=== PATIENT | female | born 1965 | race Caucasian/White ===

== ENCOUNTER 2019-04-16 13:21 | Inpatient (IN) ==
[2019-04-16 13:54] LABS: BASO# 0.02 X1000 (0.0-0.2); BASO% 0.1 % (0.0-0.8); EOS# 0.08 X1000 (0.0-0.7); EOS% 0.5 % (0.0-10.0); HEMATOCRIT 37.2 % (37.0-47.0); HEMOGLOBIN 12.1 g/dL (12.0-16.0); IMM GRAN# 0.04 X1000 (0.0-0.04); IMM GRAN% 0.3 % (0.0-0.5); LYMPH# 1.01 X1000 (1.2-3.4); LYMPH% 6.7 % (20.5-51.1); MCH 27.3 PG (27-31); MCHC 32.5 g/dL (33-37); MONO# 1.24 X1000 (0.11-0.59); MONO% 8.2 % (1.7-9.3); NEUT# 12.67 X1000 (1.4-6.5); NEUT% 84.2 % (42.2-75.2); PLT 226 X1000 (130-400); RBC 4.43 XMIL (4.2-5.4); RDW 13.1 % (11.5-14.5); WBC 15.06 X1000 (4.8-10.8)
[2019-04-16 14:23] LABS: ALBUMIN 4.1 g/dL (3.5-5.0); CALCIUM 9.3 mg/dL (8.8-10.2); POTASSIUM 4.5 mmol/L (3.5-5.1); TOTAL BILIRUBIN 0.4 mg/dL (0.20-1.00); TOTAL PROTEIN 7.5 g/dL (6.3-8.3)
[2019-04-16 14:31] LABS: URINE SOURCE CLEAN CATCH
[2019-04-16 14:36] LABS: BILIRUBIN URINE NEGATIVE (NEGATIVE); BLOOD URINE SMALL (NEGATIVE); COLOR YELLOW; GLUCOSE URINE NEGATIVE (NEGATIVE); KETONE URINE NEGATIVE (NEGATIVE); LEUKOCYTES URINE NEGATIVE (NEGATIVE); NITRITE URINE NEGATIVE (NEGATIVE); PROTEIN URINE 30 mg/dL (NEGATIVE); SP GRAVITY URINE 1.016; TURBIDITY URINE CLEAR (CLEAR); UROBILINOGEN URINE NORMAL (NORMAL)
[2019-04-16 14:38] LABS: UR EPITHELIAL CELLS <10 /HPF (<10); URINE BACTERIA NEGATIVE /HPF; URINE RBC <10 /HPF (<10); URINE WBC <10 /HPF (<10)
[2019-04-16] MEDS ORDERED: NS 1,000 ML IV ONE (14:57)
[2019-04-16] MEDS ORDERED: ZOFRAN IV ONE ×2 (14:57→18:47)
[2019-04-16 15:31] LABS: CK INDEX 1.6 (0.0-2.5); CK-MB 3.05 ng/mL (0.0-5.0)
--- NOTE | 2019-04-16 17:43 | Diag Imaging Result Doc PS360 ---
EXAM: CT ABD/PELVIS W/IV CONT ONLY INDICATION: abdo pain TECHNIQUE: This exam was performed using automated exposure control, adjustment of mA or kV according to patient size, and/or use of iterative reconstruction technique. COMPARISON: None. FINDINGS: There are a few calcified granulomata in the right lower lobe. There are multiple other tiny subcentimeter lung nodules at the bases that are noncalcified. For reference, one of the largest nodules is in the medial right middle lobe on image three of series 4 measuring up to 5.1 mm. Although these certainly could represent noncalcified granulomata, given the findings in the abdomen, metastatic disease cannot be excluded. CT surveillance is recommended. There are innumerable masses seen throughout the liver parenchyma that are highly suspicious for metastatic disease. The largest is a confluent mass at the inferior aspect of the right hepatic lobe measuring 10.4 x 5.7 cm axially. There is a cluster of low dense mass is near the sebastien hepatis that probably represent necrotic lymph nodes. The gallbladder, spleen, and adrenal glands are grossly unremarkable. No discrete pancreatic mass is identified. However, the cluster of enlarged lymph nodes near the sebastien hepatis abuts the pancreatic head. There is a nonobstructing intrarenal stone at the lower pole of the right kidney. There is a small right renal cyst. There is a duplicated right renal collecting system with two right ureters extending all way to the bladder. The kidneys are grossly unremarkable, otherwise. The urinary bladder appears normal. The reproductive tract is grossly unremarkable as imaged. There is trace free fluid in the pelvis that is nonspecific. No definite colonic wall thickening or stricture can be identified by CT. There is no evidence of bowel obstruction. There is a small hiatal hernia. The remainder of the GI tract is grossly unremarkable by CT. There are lumbar degenerative changes. There is no evidence of local bony metastatic disease. IMPRESSION: 1.Innumerable masses throughout the liver parenchyma that are highly suspicious for metastatic disease from an unknown primary. 2.Mesenteric mass is near the esbastien hepatis that probably represent enlarged necrotic lymph nodes. 3.Several tiny noncalcified nodules scattered throughout the lung bases that could represent noncalcified granulomata. However, given the findings in the abdomen, metastatic foci cannot completely be excluded. Continued CT surveillance is recommended. 4.Other incidental/nonacute findings detailed above. Electronically signed by Roberth Hilton 04/16/2019 5:41 PM
[2019-04-16] MEDS ORDERED: DILAUDID IV ONE (18:44)
--- NOTE | 2019-04-16 18:58 | PROVIDER DOCUMENTATION ---
This chart was entered by Babita Leon Scribe, acting as scribe for Ramsey Marino MD. HPI-Abdominal Pain/GI Problem - General Chief Complaint: B/P Problems Stated Complaint: BLOOD PRESSURE Time Seen by Provider: 04/16/19 14:48 Source: patient, family Allergies/Adverse Reactions: Patient Allergies Allergy/AdvReac Type Severity Reaction Status Date / Time No Known Allergies Allergy Verified 04/16/19 13:32 Home Medications: Home Medication List Medication Instructions Recorded Confirmed Last Taken Type Dextroamphetamine/Amphetamine 30 mg PO BID 04/16/19 04/16/19 04/15/19 History [Adderall 30 mg Tablet] Lisinopril 40 mg PO DAILY 04/16/19 04/16/19 04/15/19 History - History of Present Illness-ABD Nature of Presenting Problems: 53 yowf presents to the ed with c/o abd pain with n/v/d and dizziness 6 days. pt sts she feels she is dehydrated due to diarrhea and vomiting. pt has noted her BP has been low with diastolic in the 40's. pt sts did not take her HTN medication today and has vomited x1 when she tried to eat some yogurt. pt sts diarrhea has chnged to constipation today and stool is hard and small. pt c/o abd pain and dizziness on exam. pt is nontoxic in appearance Abdominal Pain Onset Location: reports: generalized abdomen Quality of Pain: reports: aching Severity in ED: reports: mild Onset/Duration: reports: 6 days ago Timing: reports: still present, improving, intermittent Activities at Onset: reports: light activity Exposure to sick contacts?: No Modifying Factors: improves with: nothing Associated Symptoms: reports: diarrhea, nausea, vomiting. denies: back/neck pain, chest pain, fever/chills, shortness of breath Last BM: this morning Dark Stools Present?: reports: none noticed Rectal Bleeding: reports: none # of Diarrhea Episodes: 0 (constipation today only ) Rectal Pain: reports: none # of Vomiting Episodes: 1 Emesis Description: reports: none Bruising or Bleeding Gums?: No Similar Symptoms Previously?: Yes Recently seen or treated by another doctor?: No Review of Systems - Adult - REVIEW OF SYSTEMS - ADULT Constitutional: denies: chills, fever Eyes: reports: no symptoms reported Ears, Nose, Mouth & Throat: reports: no symptoms reported Cardiovascular: denies: chest pain, palpitations Respiratory: denies: cough, shortness of breath, wheezing Gastrointestinal: reports: see HPI, abdominal pain, constipation, diarrhea, nausea, vomiting Genitourinary: reports: no symptoms reported Musculoskeletal: denies: back pain, neck pain Integumentary: reports: no symptoms reported Neurological: denies: dizziness/vertigo, headache/migraines Psychiatric: reports: no symptoms reported Endocrine: reports: no symptoms reported Hematologic/Lymphatic: reports: no symptoms reported Allergic/Immunologic: reports: no symptoms reported All Other Systems: Reviewed and Negative Past History - Adult - PAST MEDICAL HISTORY-ADULT Review of Records: reports: Old Records Reviewed, Nursing Assessment Review, Medications Reviewed, Social history reviewed & non-contributory. Major Childhood Illnesses: reports: denies history Cardiovascular: reports: HTN Respiratory: reports: denies history Gastrointestinal: reports: denies history Obstetrical/Gynecological: reports: denies history Genitourinary: reports: denies history Musculoskeletal: reports: denies history Hand Dominance: Right Handed Neurological: reports: denies history Psychiatric: reports: denies history Endocrine/Immune: reports: denies history Other Conditions: reports: denies history - PRIOR SURGERIES/PROCEDURES Surgical/Procedure History: reports: reviewed, not pertinent - IMMUNIZATION STATUS Childhood Immunizations: See Nurse Assessment Flu Vaccine: See Nurse Assessment - FAMILY HISTORY Family History: reviewed, not pertinent - SOCIAL HISTORY Smoking: denies Substance Use: denies Living Situation: family Physical Exam-General - PHYSICAL EXAM-ADULT Initial Vital Signs Reviewed: Yes - CONSTITUTIONAL General Appearance: appears well, alert, no apparent distress, obese - EYES Eyes: PERRL/EOMI, pink conjunctivae - HEAD, EARS, NOSE, MOUTH & THROAT HENMT: moist mucous membranes - NECK Neck: non-tender, full range of motion, supple, normal inspection - RESPIRATORY Respiratory: chest non-tender, lungs clear, normal breath sounds - CARDIOVASCULAR Cardiovascular: normal peripheral pulses, regular rate, rhythm - CHEST (BREASTS) Chest/Breast: deferred - GASTROINTESTINAL (ABDOMEN) Abdominal Exam: normal bowel sounds, soft, guarding, tenderness (diffuse). negative: distended, rigid, rebound - GENITOURINARY Female Genitalia/Pelvic Exam: deferred Rectal Exam: deferred Hemoccult Exam: deferred - LYMPHATIC Lymphatic: no adenopathy - MUSCULOSKELETAL Back Exam: no CVA tenderness, no vertebral tenderness Extremity: normal range of motion, non-tender, normal inspection - SKIN Integumentary: normal color, normal turgor, warm/dry - NEUROLOGIC Neurologic: grossly normal - PSYCHIATRIC Psych/Mental Status: normal mood/affect, normal thought content, normal thought process, oriented x 3 Progress - PLAN OF CARE/RESULTS Progress/Plan/Lab Results: Vital Signs - 8 hr 04/16/19 13:27 Temperature 99.5 F Pulse Rate 98 H Respiratory Rate 18 Blood Pressure 136/82 O2 Sat by Pulse Oximetry 100 Laboratory Results - last 24 hr 04/16/19 04/16/19 04/16/19 13:42 13:42 13:42 WBC 15.06 H RBC 4.43 Hgb 12.1 Hct 37.2 MCV 84.0 MCH 27.3 MCHC 32.5 L RDW Std Deviation 13.1 Plt Count 226 MPV 10.0 Immature Gran % (Auto) 0.3 Neut % (Auto) 84.2 H Lymph % (Auto) 6.7 L [place] % (Auto) 8.2 Eos % (Auto) 0.5 Baso % (Auto) 0.1 Immature Gran # (Auto) 0.04 Neut # (Auto) 12.67 H Lymph # (Auto) 1.01 L [place] # (Auto) 1.24 H Eos # (Auto) 0.08 Baso # (Auto) 0.02 Sodium 139 Potassium 4.5 Chloride 100 Carbon Dioxide 26 Anion Gap 14 BUN 31 H Creatinine 1.0 H Estimated GFR/1.73 m2 58 BUN/Creatinine Ratio 31 Glucose 105 H Calculated Osmolality 284 Calcium 9.3 Total Bilirubin 0.40 AST 88 H ALT 91 H Alkaline Phosphatase 234 H Troponin T High Sens 19 Total Protein 7.5 Albumin 4.1 Globulin 3.0 Albumin/Globulin Ratio 1.0 Lipase 35 Urine Source Urine Color Urine Turbidity Urine pH Ur Specific [place] Urine Protein Ur Glucose (Stick) Ur Ketones (Stick) Urine Blood Urine Nitrite Urine Bilirubin Urobilinogen Dipstick Urine Leukocytes Urine WBC (Auto) Urine RBC (Auto) U Epithel Cells (Auto) Urine Bacteria (Auto) 04/16/19 14:20 WBC RBC Hgb Hct MCV MCH MCHC RDW Std Deviation Plt Count MPV Immature Gran % (Auto) Neut % (Auto) Lymph % (Auto) [place] % (Auto) Eos % (Auto) Baso % (Auto) Immature Gran # (Auto) Neut # (Auto) Lymph # (Auto) [place] # (Auto) Eos # (Auto) Baso # (Auto) Sodium Potassium Chloride Carbon Dioxide Anion Gap BUN Creatinine Estimated GFR/1.73 m2 BUN/Creatinine Ratio Glucose Calculated Osmolality Calcium Total Bilirubin AST ALT Alkaline Phosphatase Troponin T High Sens Total Protein Albumin Globulin Albumin/Globulin Ratio Lipase Urine Source CLEAN CATCH Urine Color YELLOW Urine Turbidity CLEAR Urine pH 6.0 Ur Specific [place] 1.016 Urine Protein 30 A Ur Glucose (Stick) NEGATIVE Ur Ketones (Stick) NEGATIVE Urine Blood SMALL A Urine Nitrite NEGATIVE Urine Bilirubin NEGATIVE Urobilinogen Dipstick NORMAL Urine Leukocytes NEGATIVE Urine WBC (Auto) <10 Urine RBC (Auto) <10 U Epithel Cells (Auto) <10 Urine Bacteria (Auto) NEGATIVE Orders Category Date Time Status AMYLASE [CHEM] Stat Lab 04/16/19 13:42 Received CBC WITH ELECTRONIC DIFF [HEME] Stat Lab 04/16/19 13:42 Completed CK PROFILE [SP CHEM] Stat Lab 04/16/19 13:42 Received COMPREHENSIVE METABOLIC PANEL [CHEM] Stat Lab 04/16/19 13:42 Completed LIPASE [CHEM] Stat Lab 04/16/19 13:42 Completed TROPONIN T HIGH SENSITIVITY Stat Lab 04/16/19 13:42 Completed URINALYSIS W/POSS RFLX CULT [URINALYSIS] Stat Lab 04/16/19 14:20 Completed Result Diagrams: 04/16/19 13:42 04/16/19 13:42 - EKG 1 Time of EKG reading by physician:: 16:45 EKG Read and Signed by:: Ramsey Marino EKG Interpretation (*Must complete 3 of following elements*): Normal Rate: 85 Rhythm: nsr Rosine: normal QRS: normal CT Interval: normal ST Wave: normal - CT/MRI 1 CT Study: Abdomen, Pelvis Impression: See EMR Report - CONSULTS/PCP/HOSPITALIST Notification #1 *Consult/PCP/Hospitalist*: Time Discussed: 18:53 Consult Disposition: Will see in ED, Admit Departure - Departure Date of Disposition Decision: 04/16/19 Time of Disposition Decision: 18:53 DIAGNOSIS: Abdominal mass, Abdominal pain, Renal insufficiency, Lung nodules Disposition: ADMITTED INPATIENT 09 Certified Medical Emergency: Emergent Condition: Fair Referrals and Follow-Ups: Venus Boyle [Primary Care Provider] - - Critical Care Note This patient required my direct & personal management of CC.: No Attestation - Physician/ DILIP Attestation Patient care was provided by Advanced Practice Provider:: No The physician spent face to face time with patient:: Yes Advanced Practice Provider documentation review:: Supervising physician onsite and consulted in the evaluation and care of this patient. The physician did have a face to face encounter with the patient. This chart was documented by the indicated scribe, (Babita Leon Scribe) and accurately reflects the services I performed and decisions made by me, Ramsey Marino MD, as attested by the provider's signature.
[2019-04-16] MEDS ORDERED: ZOFRAN IV PRN (19:17)
[2019-04-16] MEDS ORDERED: M.V.I.-12 10 ML, FOLIC ACID 1 MG, MAGNESIUM SULFATE 1 GM, THIAMINE 100 MG in NS 1,000 ML IV ONE (19:17)
[2019-04-16] MEDS ORDERED: TYLENOL PO PRN (19:17)
[2019-04-16] MEDS ORDERED: NORCO-5 PO PRN (19:21)
[2019-04-16] MEDS ORDERED: NS 1,000 ML IV SCH ×2 (19:30)
[2019-04-16] MEDS ORDERED: LOVENOX SUBQ SCH (20:00)
--- NOTE | 2019-04-16 20:10 | Diag Imaging Result Doc PS360 ---
EXAM: CT HEAD W/O CONTRAST INDICATION: mets to liver TECHNIQUE: This exam was performed using automated exposure control, adjustment of mA or kV according to patient size, and/or use of iterative reconstruction technique. COMPARISON: None. FINDINGS: There is no definite acute infarct given the limited sensitivity of CT versus MRI. There is no discrete intracranial mass, mass effect, or intracranial hemorrhage. The surrounding soft tissues and bony structures are essentially unremarkable. IMPRESSION: No evidence of acute intracranial pathology. Electronically signed by Roberth Hilton 04/16/2019 8:08 PM
--- NOTE | 2019-04-16 20:22 | Diag Imaging Result Doc PS360 ---
EXAM: CT THORAX W/O CONTRAST INDICATION: mets to liver/? primary TECHNIQUE: This exam was performed using automated exposure control, adjustment of mA or kV according to patient size, and/or use of iterative reconstruction technique. COMPARISON: None. FINDINGS: There are several calcified granulomata scattered throughout both lungs and there are also numerous tiny subcentimeter nodules throughout both lungs. For reference, one of the largest nodules is pleural-based seen at the superior aspect of the right lower lobe measuring up to 6.6 mm. These nodules are nonspecific. Although they certainly could represent noncalcified granulomata as there is clearly evidence of prior granulomatous disease, metastatic lesions cannot completely be excluded given the findings on a recent CT of the abdomen and pelvis performed earlier today. There is no pleural fluid collection and no pneumothorax. There are multiple calcified mediastinal and hilar lymph nodes indicating prior granulomatous disease. No other significant lymphadenopathy is appreciated in the rupert or mediastinum given the limitations of an unenhanced CT. There is no cardiomegaly. There is no evidence of local bony metastatic disease. IMPRESSION: Numerous tiny noncalcified nodules seen throughout both lungs that are subcentimeter in size. Although they could represent noncalcified granulomata given that there is clearly evidence of prior granulomatous disease, metastatic foci cannot completely be excluded given the findings on a prior CT of the abdomen and pelvis performed earlier today. Continued surveillance is recommended. Electronically signed by Roberth Hilton 04/16/2019 8:19 PM
--- NOTE | 2019-04-16 22:31 | HISTORY AND PHYSICAL ---
CHIEF COMPLAINT: Abdominal pain, blood pressure. HISTORY OF PRESENT ILLNESS: The patient is a 53-year-old female who presented to the emergency department complaining of being nauseated and vomiting. Notes she has been dizzy off and on for the past week. She noted that she has been dehydrated, not drinking well. Does have some abdominal pain. She has also had weight loss. ALLERGIES: No known drug allergies. MEDICATIONS: Lisinopril 40, Adderall 30. REVIEW OF SYSTEMS: The patient has had a 20 to 30 pound weight loss, generalized abdominal pain, nausea, dizziness, fatigue. Denies any shortness of breath, chest pain, palpitations. Denies any fevers or chills. She has had intermittent constipation and diarrhea. PAST MEDICAL HISTORY: Hypertension. FAMILY HISTORY: Noncontributory. SOCIAL HISTORY: The patient has a 30+ pack-year history of smoking. Does not drink or use illicit substances. PHYSICAL EXAM: Temperature 99, pulse 98, respiratory 18, BP 136/80. GENERAL: Patient is pleasant. She is in no distress. HEENT: Normocephalic. NECK: Supple. CARDIOVASCULAR: Regular rate. CHEST: Clear, nonlabored. ABDOMEN: Soft, diffusely tender, more so in the right upper quadrant. EXTREMITIES: Moves all extremities. NEUROLOGIC: No changes. She is awake, alert, oriented. LABS: WBCs 15, glucose 105, creatinine 1. CT demonstrates innumerable masses in her liver. ASSESSMENT: 1. Likely metastatic cancer with multiple masses in her liver. 2. Hypertension. 3. Weight loss. 4. Leukocytosis. 5. Chronic tobacco abuse. PLAN: We are going to admit patient to the hospital, place her on IV fluids, follow her blood pressures. She has not had a mammogram in the past 6 years. Notes that she has not had a colonoscopy previously. Does have a 30+ pack-year history of smoking. We are going to check a CT of her chest and will evaluate her liver masses. cc: Eulogio Solano MD
[2019-04-17 06:43] LABS: HEMATOCRIT 33.5 % (37.0-47.0); HEMOGLOBIN 10.6 g/dL (12.0-16.0); MCH 27.2 PG (27-31); MCHC 31.6 g/dL (33-37); MCV 86.1 FL (81-99); MPV 9.8 FL (7.4-10.4); RBC 3.89 XMIL (4.2-5.4); RDW 13.3 % (11.5-14.5); WBC 11.75 X1000 (4.8-10.8)
[2019-04-17] MEDS ORDERED: TYLENOL PO PRN (07:24)
--- NOTE | 2019-04-17 07:42 | EKG Report ---
Test Performed on : 04/16/2019 4:45:14 PM Test Reason : ER Blood Pressure : / mmHG Vent. Rate : 085 BPM Atrial Rate : 085 BPM P-R Int : 130 ms QRS Dur : 086 ms QT Int : 356 ms P-R-T Axes : 067 068 069 degrees QTc Int : 423 ms Normal sinus rhythm. Normal ECG No previous ECGs available Unconfirmed Result
[2019-04-17] MEDS ORDERED: M.V.I.-12 10 ML, FOLIC ACID 1 MG, MAGNESIUM SULFATE 1 GM, THIAMINE 100 MG in NS 1,000 ML IV ONE ×10 (08:00)
[2019-04-17] MEDS: NORCO-5 PO PRN (09:38)
[2019-04-17] MEDS: MORPHINE IV PRN ×4 (12:11→22:06)
[2019-04-17] MEDS: NS 1,000 ML IV SCH ×3 (12:17→22:08)
[2019-04-17 12:45] LABS: INR 1.2; PROTIME 15.3 Seconds (11.0-16.0)
[2019-04-17 12:46] LABS: PTT 41.4 Seconds (22.3-41.8)
--- NOTE | 2019-04-17 14:01 | HEMO/ONC CONSULTATION ---
DATE: 04/17/2019 REASON FOR CONSULTATION: Possible metastasis to the liver. HISTORY OF PRESENT ILLNESS: Ms. Gonzales is a 53-year-old female who presented to the emergency department yesterday with complaint of nausea, vomiting, and diarrhea with dizziness for the last 6 days. She also has abdominal pain and feels as though she is dehydrated. The ER performed an abdominal and pelvis CT which revealed innumerable masses throughout the liver parenchyma that were highly suspicious for metastatic disease. The patient also has a mesenteric mass near the sebastien hepatico and several tiny noncalcified nodules scattered throughout the lung bases. The patient was admitted for management and further evaluation. PAST MEDICAL HISTORY: Hypertension. PAST SURGICAL HISTORY: None. SOCIAL HISTORY: The patient has a 30 pack year history of smoking. She denies alcohol or illicit substances. ALLERGIES: No known drug allergies. HOME MEDICATIONS: Lisinopril and Adderall. REVIEW OF SYSTEMS: The patient complains of generalized abdominal pain. This morning, she denied nausea or diarrhea. She denies shortness of breath or chest pain, fevers or chills. According to the ER chart, she has had a 20 to 30 pound weight loss recently. All other review of systems are negative. PHYSICAL EXAMINATION: Vital Signs: Temperature 98 degrees, pulse rate 84, respiratory rate 19, blood pressure 137/82, O2 saturation 100% on room air. She is in 8/10 generalized abdominal pain. General: Obese female with a BMI of 30.7. She appears in no acute distress. HEENT: Sclerae anicteric. PERRLA. Oral mucosa slightly dry. Cardiovascular: Normal S1, S2. Regular rate and rhythm. Respiratory: Lung sounds are clear to auscultation. Normal respiratory effort. Abdomen: Protuberant, tender to the right upper quadrant, soft. Extremities: No lower extremity edema noted. Neurological: Alert and oriented x3. No focal motor deficits noted. LABORATORY DATA: WBCs 11.75, hemoglobin 10.6, hematocrit 33.5, platelet count 209,000. Creatinine 1.08, AST 88, ALT 91, alkaline phosphatase 234. CEA 29.4. RADIOLOGY: Chest, abdomen and pelvis CT: Innumerable masses throughout the liver parenchyma, mesenteric mass near the sebastien hepaticus, several tiny noncalcified nodules scattered throughout the lung bases. Chest CT: Numerous tiny noncalcified nodules seen throughout both lungs that are subcentimeter in size. Head CT: No acute evidence of intracranial pathology. ASSESSMENT AND PLAN: 1. Multiple lung nodules, mesenteric mass and liver masses. The patient has an elevated CEA. We have requested a CT-guided liver biopsy to be done today. We need pathology to determine for further assessment. 2. Nausea, vomiting, diarrhea. Continue to rehydrate the patient and provide her with nausea medicines as necessary. 3. Tobacco abuse, aware. Encouraged the patient to quit smoking. 4. Gastroenterology evaluation. The patient states she has never had a colonoscopy. That will need to be done soon. Dictated by OSKAR Posadas for Billy Ruiz MD cc: Billy Ruiz MD MTDD
--- NOTE | 2019-04-17 14:56 | Diag Imaging Result Doc PS360 ---
EXAM: CT GUIDED BX LIVER INDICATION: liver lesions TECHNIQUE: COMPARISON: 04/16/2019 FINDINGS: Risks, benefits, and alternatives were discussed with the patient and informed consent was obtained. The patient was placed in a supine position and was prepped and draped in sterile fashion. Local anesthesia was achieved with 1% lidocaine solution. With CT guidance, an 18-gauge coaxial biopsy needle system was used to obtain five 1.2 cm core biopsies from the dominant mass at the inferior aspect of the right hepatic lobe using an anterior approach. There were no known complications. IMPRESSION: Technically successful CT-guided liver biopsy. Electronically signed by Roberth Hilton 04/17/2019 2:54 PM
[2019-04-17] MEDS: MIRALAX PO SCH ×3 (15:03→22:46)
--- NOTE | 2019-04-17 18:16 | PROGRESS NOTE ---
DATE: 04/17/2019 SUBJECTIVE: I have seen and examined Ms. Gonzales today. Ms. Gonzales refers to be doing well. At the bedside was the boyfriend and the daughter. I had early on gone to see her but she had gone to do a liver biopsy on the CT scan and then I went back again. OBJECTIVE: Vital signs: Blood pressure is 138/76, pulse of 81, respirations 19, temperature 98.9 degrees. General: Ms. Gonzales is a 53-year-old female. She is in bed. No distress mucosa is pink and moist. Anicteric. Acyanotic. Neck: Supple. Chest: Clear to auscultation. No crepitations. No rhonchi. Cardiovascular: Regular rate and rhythm. Gastrointestinal: Abdomen is soft, nontender. There is an old infraumbilical surgical scar from tubal ligation. There is a sterile dressing over the CT-guided biopsy spot on the right upper quadrant. Extremities: No pedal edema. Central Nervous System: Patient is awake, alert, and oriented. LABORATORY DATA: WBC is 11.75, which is getting better. Hemoglobin is 10.6. Chemistry is also reviewed. Creatinine is 1.0 from yesterday. AST and ALT are minimally elevated. CEA is 29.4, which is elevated. ASSESSMENT: 1. Innumerable masses throughout the liver parenchyma that are highly suspicious for metastatic disease from unknown primary. Patient underwent a CT-guided biopsy today. Hopefully, tomorrow we are going to have some preliminary results. 2. Hypertension. 3. Chronic tobacco use and abuse. Patient has been counseled. 4. Weight loss. The patient refers to have lost about 20 pounds in the last month. 5. Transaminitis presumably from the liver metastasis. 6. Renal failure presumably acute with elevated BUN. We are going to continue with gentle hydration overnight and repeat the numbers. 7. Elevated CEA which would be concerning for a colon disease. Fortunately, the CT scan did not show any mass in the colon. There is a consult for GI to evaluate Ms. Gonzales for possible bidirectional endoscopies as part of the workup for this liver disease. cc: Amos Cordova MD
[2019-04-17] MEDS: AMPHETAMINE PO SCH (19:04)
[2019-04-17] MEDS: DEXTROAMPHETAMINE PO SCH (19:04)
[2019-04-17] MEDS: LOVENOX SUBQ SCH (20:11)
[2019-04-18] MEDS: MORPHINE IV PRN ×5 (02:02→21:44)
[2019-04-18] MEDS: MIRALAX PO SCH ×6 (07:03→22:22)
[2019-04-18] MEDS: AMPHETAMINE PO SCH ×2 (07:34→13:12)
[2019-04-18] MEDS: NORCO-5 PO PRN ×3 (07:34→22:55)
[2019-04-18] MEDS: DEXTROAMPHETAMINE PO SCH ×2 (07:34→13:12)
[2019-04-18 07:58] LABS: AGAP 10; ALB/GLOB RATIO 0.8; ALBUMIN 2.9 g/dL (3.5-5.0); ALKALINE PHOSPHATASE 205 U/L (32-104); BUN 13 mg/dL (8-22); CALCIUM 8.5 mg/dL (8.8-10.2); CHLORIDE 103 mmol/L (98-107); COSMO 278; CREATININE 0.7 mg/dL (0.5-0.9); ESTIMATED GFR > 60; GLUCOSE 96 mg/dL (70-104); GOT 77 U/L (10-30); GPT 89 U/L (10-36); POTASSIUM 4.4 mmol/L (3.5-5.1); SODIUM 139 mmol/L (136-145); TCO2 26 mmol/L (25-35); TOTAL BILIRUBIN 0.43 mg/dL (0.20-1.00); TOTAL PROTEIN 6.4 g/dL (6.3-8.3)
[2019-04-18] MEDS: NS 1,000 ML IV SCH ×2 (09:15→10:02)
--- NOTE | 2019-04-18 10:10 | PROGRESS NOTE ---
DATE: 04/18/2019 SUBJECTIVE: The patient's condition has not changed much since the previous time that my preceptor and I saw her yesterday afternoon. She reports no changes herself. Her only chief complaint at this point is continued constipation along with abdominal fullness and tenderness. She reports that the current regimen of MiraLAX that we have been giving her every 4 hours has not helped her with this at all. Her other main concern at this point is the results of the CT-guided biopsy of the multiple liver masses that were confirmed with CT. At this point, we still await the results of this biopsy and will follow up with Hematology/Oncology and Pathology as soon as we receive the results of the biopsy. OBJECTIVE: Vital signs: Most recent vital signs include a temperature of 98.5 degrees Fahrenheit, a pulse rate of 77 beats per minute, a respiratory rate of 19 respirations per minute, and a blood pressure of 146/86, along with an O2 saturation of 99. PHYSICAL EXAMINATION: Heart: Clear to murmurs, rubs, and gallops. Pulmonary: Lung is clear to auscultation in all lung esquivel with no rales or rhonchi appreciated. GI: The abdomen is mildly tender in the top left, top right, and bottom right quadrants of the abdomen along with increased tenderness in the bottom left hand corner of the abdomen. The abdomen is mildly distended. The abdomen exhibits bowel sounds that are diminished but present in all 4 quadrants. PERTINENT LABORATORY STUDIES: The most recent white blood cell count was 11.75, RBC 3.89, hemoglobin 10.6, hematocrit 33.5. PT 15.3, INR 1.2, PTT 41.4. Her calcium is low at the level of 8.5, all other electrolytes are within normal limits including a BUN of 13 with a creatinine of 0.7. PERTINENT IMAGING STUDIES: Previously, a CT of the abdomen and pelvis revealed multiple nodular masses found within the liver with masses that have metastasized to both the lungs and supposedly the breasts. A CT-guided biopsy of the mass in the liver was performed yesterday and we await the results of this biopsy today and will follow up with Hematology/Oncology and Pathology when we receive the results of this biopsy. ASSESSMENT AND PLAN: 1. Masses throughout the liver parenchyma. These masses are highly concerning for metastasis of an unknown neoplasia. This is evidenced by an elevated carcinogenic embryonic antigen. We will follow up closely with Hematology/Oncology depending on the results of the biopsy that was taken yesterday and follow their recommendations for treatment depending on the results of the biopsy. Furthermore, it is previously documented that she reported B symptoms as well endorsing a weight loss of over 20 pounds without trying to lose weight. This is further concerning for neoplastic etiology of the masses within her liver. 2. Chronic constipation. Thankfully, the computed tomography scan that discovered the masses showed no masses within the colon so at this point it is most likely not that her constipation is due to any tumors such as Harrison syndrome or toxic megacolon, however, seeing that she does report continued constipation, we will increase her dose of MiraLAX to every 2 hours instead of every 4 hours for now. regards to her systolic blood pressure. Will continue to monitor Thank you very much for allowing me to see your patient. Dictated by Miroslava Prasad, Medical Student for Amos Cordova MD This chart was documented by, Miroslava Prasad Medical Student and accurately reflects the services performed, treatment plan and medical decisions as attested by the providers signature Amos Cordova MD. cc: Amos Cordova MD Addendum: Pathology report reviewed. Adenocarcinoma with necrosis. Awaiting IHC. Patient and family have been notified. Awaiting on GI evaluation on Sunday. [facility]
--- NOTE | 2019-04-18 11:02 | GASTROENTEROLOGY CONSULTATION ---
DATE: 04/18/2019 REASON FOR CONSULT: Liver mass. HISTORY OF PRESENT ILLNESS: Ms. Gonzales is a 53-year-old female who presented to the [facility] complaining of nausea and vomiting. She came yesterday to [facility]. She mentioned that it all started from when she had some abdominal pain and diarrhea. On Sunday when she woke up she felt like she was confused and did not know what was going on, but Sunday she went back to work, and when she went to work she felt like her blood pressure had dropped. She was feeling dizzy, dehydrated. She is still complaining of abdominal pain in the upper quadrant. She said on Sunday her blood pressure was normal, but she still had abdominal cramps with nausea and vomiting. She has been having constipation, her last BM was on Sunday with few hard stools. The patient has the history of hypertension, narcolepsy, depression, sleep apnea, and has been taking Adderall for the last 4 years for her weight loss. The patient has lost approximately 30 to 35 pounds so far. An abdomen and pelvis CT was done on 04/16/2019, and it showed that she had innumerable masses throughout the liver parenchyma highly suspicious of metastatic disease, mesenteric mass near the sebastien hepatis that probably represents enlarged necrotic lymph nodes, and several tiny noncalcified nodules scattered throughout the lung bases, which could represent noncalcified granulomata. Her chest CT has shown that she has numerous tiny noncalcified nodules seen throughout about the lungs that are subcentimeter in size. A liver biopsy was done on 04/17/2019, preliminary path report shows metastatic adenocarcinoma with extensive necrosis, final diagnosis is pending, PAST MEDICAL HISTORY: Narcolepsy, depression, sleep apnea, hypertension, and tobacco abuse. PAST SURGICAL HISTORY: Tonsillectomy and tubal ligation. FAMILY HISTORY: Significant for heart disease. ALLERGIES: Allergic to pet dander. SOCIAL HISTORY: Smokes 1 pack of cigarettes daily. She has denied drinking any alcohol or illicit substance abuse. HOME MEDICATIONS: Adderall 30 mg twice a day, lisinopril 40 mg twice a day. REVIEW OF SYSTEMS: As per HPI. Otherwise, 12-point review of systems is negative. PHYSICAL EXAMINATION: Vital Signs: Temperature 98.5, pulse 77, respirations 19, blood pressure 146/86, oxygen saturation 99% on room air. Patient's weight is 208 pounds. BMI is 30.7 kg/m2. General: She is alert, oriented x3. Answering questions appropriately and in no acute distress. HEENT: Pale conjunctivae, no icterus. PERRL. Neck: Supple. Lungs: Clear to auscultation. Cardiovascular: Regular rate and rhythm. Abdomen: Soft. mildly distended, Tender in the right quadrants. Active bowel sounds heard in all 4 quadrants. Old surgical scar noted in the mid abdominal area. She also has a dressing on the right upper quadrant where the biopsy was taken. Extremities: No clubbing, no cyanosis, no edema. Pedal pulses 2+ present bilaterally. Neurologic: Alert and oriented x3. Nonfocal. Cranial nerves 2 through 12 grossly intact. LABS: WBCs 11.75, RBC 3.89, hemoglobin 10.6, hematocrit is 33.5, platelet count is 209,000. The sodium is 139, potassium 4.4, chloride 103, carbon dioxide 20, anion gap 10, BUN 13, creatinine is 0.7, glucose 96, calcium 8.5, total bilirubin 0.43, AST 77, ALT 89, alkaline phosphatase 205, albumin 2.9. Urinalysis showed protein of 30, small amount of blood. IMAGING: Head CT showed no evidence of acute intracranial pathology. Chest CT had showed numerous tiny noncalcified nodules seen throughout both lungs that are subcentimeter in size. Abdomen and pelvis CT has shown innumerable masses throughout the liver parenchyma which is highly suspicious for metastatic disease. Mesenteric mass is near the sebastien hepatis that probably represents enlarged necrotic lymph nodes. Several tiny noncalcified nodules scattered throughout the lung bases that could represent noncalcified granulomata. IMPRESSION AND PLAN: 1. Liver mass. 2. Abdominal pain. 3. Nausea and vomiting. 4. Hypertension. 5. Constipation PLAN: Ms. Gonzales is a 53-year-old female with a history of hypertension. GI has been consulted for her liver mass that is seen on her CT scan. We plan to do a colonoscopy for further evaluation and treatment on Sunday. The patient is currently receiving IV fluids normal saline at 75 mL/hour. She is on a bowel regimen, MiraLAX 17 grams QID. Patient is constipated since Sunday, we will give her one dose of mineral enema and continue to monitor. The patient is receiving antiemetic Zofran for nausea and vomiting. We will continue to monitor the patient and follow the plan of care per PCP. We are awaiting the results of the liver biopsy. This plan was discussed with Dr. Mendez. Thank you for your consult. Please call us for any further questions or concerns. Dictated by OSKAR Sellers for Julio Mendez MD [facility]TDD
[2019-04-18] MEDS ORDERED: FLEET MINERAL OIL ENEMA PR ONE ×2 (11:40→21:00)
--- NOTE | 2019-04-18 13:01 | HEMO/ONC PROGRESS NOTE ---
DATE: 04/18/2019 SUBJECTIVE: The patient is sitting up in bed. She states she definitely feels better than she has over the past several days. Her nausea and vomiting are relieved. However, she has still not had a bowel movement in approximately a week she says, despite use with MiraLAX. She continues to have pain to the right upper quadrant. Her abdomen is not tender anywhere else. She denies any significant events overnight. OBJECTIVE: Vital Signs: Temperature 98.5 degrees, pulse rate 88, respiratory rate 19, blood pressure 132/84, O2 saturation 100% on room air. She is in 7 out of 10 abdominal pain. General: Obese female in no acute distress. Cardiovascular: Normal S1, S2. Heart rate and rhythm regular. Respiratory: Lung sounds are clear to auscultation. Normal respiratory effort. Gastrointestinal: Soft, nondistended, tender to the upper right quadrant. Positive bowel sounds. Extremities: No lower extremity edema noted. Neurological: Alert and oriented x3. No focal motor deficits. LABORATORY DATA: No CBC drawn today. Sodium 139, potassium 4.4, calcium 8.5, AST 77, ALT 89, alkaline phosphatase 205. CEA 29.4. Pathology: The patient had a CT-guided liver biopsy performed which shows metastatic adenocarcinoma with extensive necrosis. Final diagnosis pending immunohistochemical stain. ASSESSMENT AND PLAN: 1. Multiple lung nodules, mesenteric mass and liver masses. The patient has an elevated CEA of 29.4. Her liver biopsy has shown metastatic adenocarcinoma. The patient will stay in the hospital over the weekend. She will have a colonoscopy on Sunday. 2. Nausea, vomiting, diarrhea. Continue to rehydrate the patient and provider her with appropriate nausea medications as needed. 3. Constipation. The patient states she has not had a good bowel movement in a week. She was placed on a MiraLAX protocol yesterday. She states she still has not had a bowel movement yet. We will continue MiraLAX. I am sure she will have a bowel prep soon to prepare for colonoscopy. 4. Tobacco abuse, aware. Encouraged the patient to quit smoking. 5. Deep venous thrombosis prophylaxis. The patient needs to have on pneumatic devices or sequential compression devices. She is also on Lovenox at this time. Please continue to encourage the patient to get out of bed, move about and sit in a chair some. This will also help with her bowels. Dictated by OSKAR Posadas for Billy Ruiz MD For liver biopsy today. Pathology prelim suggests adenocarcinoma. Immunostains pending. Patient should have scopes done sunday. Family had several questions which were addressed. Constipation persists despite miralax q4h. Discussed with GI [facility] for their further management. Billy Ruiz MD cc: Billy Ruiz MD [facility]
[2019-04-18] MEDS ORDERED: ATIVAN PO ONE (17:12)
[2019-04-18] MEDS: LEXAPRO PO SCH (20:54)
[2019-04-18] MEDS: LOVENOX SUBQ SCH (20:54)
[2019-04-19] MEDS: MIRALAX PO SCH ×6 (02:07→22:27)
[2019-04-19] MEDS: MORPHINE IV PRN ×4 (03:07→15:13)
[2019-04-19] MEDS: ZOFRAN IV PRN (03:18)
[2019-04-19] MEDS: AMPHETAMINE PO SCH ×2 (06:08→11:37)
[2019-04-19] MEDS: DEXTROAMPHETAMINE PO SCH ×2 (06:08→11:37)
[2019-04-19] MEDS: NORCO-5 PO PRN ×2 (06:08→13:16)
--- NOTE | 2019-04-19 12:42 | GASTROENTEROLOGY PROGRESS NOTE ---
DATE: 04/19/2019 SUBJECTIVE: Ms. Gonzales is a 53-year-old female. She was sitting in the chair. The patient has denied any nausea, vomiting. She is on a regular diet and was able to tolerate her diet well. She did have a few bowel movements early this morning and late yesterday night. OBJECTIVE: Vital Signs: Temperature 98.2 degrees, pulse 80, respirations 18, blood pressure 128/79, oxygen saturation 99%. The patient's weight is 208 pounds. BMI is 30.7 kg/m2. General: She is alert, oriented x3, and in no acute distress. HEENT: Pale conjunctivae. Mild icterus. PERRL. Neck: Supple. Lungs: Clear to auscultation. Cardiovascular: Regular rate and rhythm. Abdomen: Obese, soft, tender in the right upper quadrant. Has a bandage on the right quadrant where the biopsy was taken. Active bowel sounds heard in all 4 quadrants. Extremities: No clubbing, no cyanosis, no edema. Pedal pulses 2+ present bilaterally. Neurological: Alert and oriented x3. LABORATORY: The patient's hematology is from 04/16. WBC 11.75, RBC 3.89, hemoglobin 10.6, hematocrit 33.5, platelet count is 209,000. Sodium 139, potassium 4.4, chloride 103, carbon dioxide 26, anion gap is 10, BUN is 13, creatinine is 0.7, glucose is 96, calcium is 8.5, total bilirubin 0.43, AST 77, ALT 89, alkaline phosphatase is 205, albumin is 2.9. The patient's liver biopsy preliminary report shows that she has got metastatic adenocarcinoma with extensive necrosis. Final diagnosis is yet pending. IMPRESSION AND PLAN: Liver mass Abdominal pain Nausea and vomiting Hypertension Constipation - resolved Tobacco abuse PLAN: Ms. Gonzales is a 53-year-old female with a history of hypertension. GI is following her for a liver mass which was seen on the CT scan. We plan to do a colonoscopy on Sunday for further evaluation and treatment. The patient's constipation is currently resolved. She is on a bowel regimen Miralax 17 g p.o. every 4 hours. The patient is receiving antiemetic Zofran for her nausea and vomiting. Awaiting the final biopsy results. We will continue to monitor the patient and follow the plan of care per PCP. This plan was discussed with Dr. Mckeon. Please call us for any further questions or concerns. Dictated by OSKAR Sellers for Joslyn Mckeon MD cc: Joslyn Mckeon MD [facility]
--- NOTE | 2019-04-19 14:27 | PROGRESS NOTE ---
DATE: 04/19/2019 INTERVAL HISTORY: The patient is doing well. Still having some occasional right lower quadrant pain, but otherwise no complaints. Afebrile. REVIEW OF SYSTEMS: Twelve point review of systems negative except as per interval history. VITALS: T-max 98.3 degrees, pulse 79, respirations 18, blood pressure 128/79. O2 saturation 99% on room air. PHYSICAL EXAMINATION: General: No acute distress. Vitals: As above. HEENT: Normocephalic, atraumatic. Moist mucous membranes. No cervical adenopathy. Cardiovascular: Regular rate and rhythm. No murmurs noted. Pulmonary: Clear to auscultation bilaterally. No wheezing, rales, or rhonchi. Abdomen: Minimal diffuse tenderness without rebound or guarding. Bowel sounds positive. No distention. Extremities: Peripheral pulses intact. No clubbing, cyanosis. Neurologic: Cranial nerves grossly intact. No focal deficits identified. Psychiatric: Normal mood and affect. Awake, alert, oriented x3. ASSESSMENT AND PLAN: 1. Likely late stage colon cancer with metastasis to liver and lung. Patient with numerous masses in the liver and numerous tiny masses in the lungs. CEA elevated. Pathology from liver biopsy showing adenocarcinoma with extensive necrosis. Given adenocarcinoma and past elevated CEA and distribution of metastases this is almost certainly colon cancer. The patient still with issues with constipation despite fairly aggressive bowel regimen, although she does not appear to be obstructed on most recent imaging. No abdominal distention really. However, there is some concern for possible developing obstruction. The patient is planned for colonoscopy on Sunday and will receive GoLYTELY prep tomorrow, which may help with the constipation and prevent worsening of possible obstruction. Suspect she will need port placement after the colonoscopy. We will discharge home after that, assuming she is eating and drinking reasonably well. 2. Acute on chronic constipation. Patient does have some chronic issues with constipation, which may be a large part of it given her likely diagnosis of colon cancer. There is some concern for developing obstruction as above. Continue bowel regimen and monitor. No sharita obstruction on imaging thus far. 3. Tobacco abuse. Patient has been advised on cessation.
--- NOTE | 2019-04-19 18:33 | HEMO/ONC PROGRESS NOTE ---
DATE: 04/19/2019 SUBJECTIVE: The patient is sitting up in bed. She states that she is feeling better today. VITAL SIGNS: Temperature 98.3, pulse rate 79, respiratory rate 18, blood pressure 128/79, O2 saturation 99% on room air. She is in 10/10 abdominal pain. PHYSICAL EXAMINATION: General: The patient is sitting in bed. She appears to be in no acute distress. Cardiovascular: Normal S1, S2. Regular rate and rhythm. Rhythm. Respiratory: Lung sounds are clear to auscultation. Normal respiratory effort. Abdomen: Diffuse tenderness with palpation. No guarding. Bowel sounds are positive. No distention. Abdomen soft. Extremities: No lower extremity edema noted. Neurological: Alert and oriented x3. LABORATORY DATA: No labs were drawn today. ASSESSMENT AND PLAN: 1. Multiple lung nodules, mesenteric mass and liver masses. The patient's CEA is elevated. Her preliminary liver biopsy shows metastatic adenocarcinoma. We are continuing to await final pathology after stains. The patient has had a bowel movement today. She is feeling better in that regard. She will have a colonoscopy on Sunday. We will continue to follow. 2. Nausea, vomiting, and diarrhea. This has resolved. 3. Acute on chronic constipation. The patient states that she does have chronic issues with constipation. This may be in part due to malignancy. The patient has started a bowel regimen in preparation for colonoscopy on Sunday. She is currently having bowel movements. 4. Tobacco abuse, aware. Encouraged patient to quit smoking. 5. Deep venous thrombosis prophylaxis. The patient is wearing pneumatic devices or sequential compression devices. Continue her on Lovenox until necessary to stop or colonoscopy. Continue to encourage patient to get out of bed at least 3 times a day. Dictated by OSKAR Posadas for Billy Ruiz MD cc: Billy Ruiz MD
[2019-04-19] MEDS: PERCOCET-10 PO PRN (18:55)
[2019-04-19] MEDS: LOVENOX SUBQ SCH (19:49)
[2019-04-19] MEDS: LEXAPRO PO SCH ×2 (19:53→20:16)
[2019-04-19] MEDS: ATIVAN PO SCH ×2 (19:54→20:16)
[2019-04-20] MEDS: PERCOCET-10 PO PRN ×5 (01:34→22:05)
[2019-04-20] MEDS: MIRALAX PO SCH ×5 (03:09→20:43)
[2019-04-20] MEDS: AMPHETAMINE PO SCH ×2 (06:13→12:05)
[2019-04-20] MEDS: DEXTROAMPHETAMINE PO SCH ×2 (06:13→12:05)
[2019-04-20] MEDS ORDERED: GOLYTELY PO ONE (14:00)
--- NOTE | 2019-04-20 14:54 | GASTROENTEROLOGY PROGRESS NOTE ---
DATE: 04/20/2019 SUBJECTIVE: Ms. Gonzales is a 53-year-old female resting in bed. Family is at the bedside. The patient has denied any nausea or vomiting today. She did have 1 bowel movement today. OBJECTIVE: V/S - temp 98.3, pulse 80, R-16, BP-125/66, O2 100% RA, Weight - 208 lbs, BMI 30.7 kg/m2. General: AO x 3, in no acute distress, HEENT: Pale conjunctivae, no icterus, PERRL, Neck supple, Lungs: clear to auscultation. Cardiovascular: RRR. Abdomen: slight abdominal tenderness in the right quadrant. Active bowel sounds heard in all 4 quadrants. Extremities no clubbing, no cyanosis, no edema. Pedal pulses 2+ present bilaterally. Neurologic she is alert, oriented x3. LABS: WBCs 11.75, RBC 3.89, hemoglobin 10.6, hematocrit 33.5, platelet count is 209,000. The patient's chemistries are from 04/17: Sodium 139, potassium 4.4, chloride 103, carbon dioxide 26, anion gap 10, BUN 13, creatinine is 0.7, glucose 96, calcium 8.5, total bilirubin 0.43, AST 77, ALT 89, alkaline phosphatase is 205, albumin is 2.9. IMPRESSION AND PLAN: Liver masses and lung nodules Abdominal pain Nausea and vomiting Hypertension Constipation Tobacco abuse PLAN: Ms. Gonzales is a 53-year-old female with a history of hypertension. GI is following a liver masses which were seen on the CT scan. We plan to do EGD and a colonoscopy for further evaluation and treatment. The patient's constipation is getting resolved. She is on a bowel regimen, MiraLAX 17 g every 4 hours. We will reduce it to every 2 hours. The patient is also receiving Zofran for nausea and vomiting. Further plan of care will be based on the EGD and colonoscopy findings. We have discussed the risks, benefits, and alternatives of the procedure to the patient. This plan was discussed with Dr. Mckeon. Please call us for any further questions or concerns. Dictated by OSKAR Sellers for Joslyn Mckeon MD cc: Joslyn Mckeon MD [facility]
--- NOTE | 2019-04-20 15:34 | PROGRESS NOTE ---
DATE: 04/20/2019 INTERVAL HISTORY: The patient's right lower abdominal pain is better controlled with Percocet. The patient is starting bowel prep today for a colonoscopy tomorrow. No acute events. No other complaints. REVIEW OF SYSTEMS: Twelve point review of systems is negative except as per interval history. VITALS: T-max 99.7 degrees, pulse 80, respirations 16, blood pressure 125/66, O2 saturation 100% on room air. PHYSICAL EXAMINATION: General: No acute distress. Vitals: As above. HEENT: Normocephalic, atraumatic. Moist mucous membranes. No JVD. No cervical adenopathy. Cardiovascular: Regular rate and rhythm. No murmurs noted. Pulmonary: Clear to auscultation bilaterally. No wheezing, rales, or rhonchi. Abdomen: Soft. Minimal diffuse tenderness without rebound or guarding. Bowel sounds pretty good. Extremities: Peripheral pulses intact. No clubbing, cyanosis, or edema. Neurologic: Cranial nerves grossly intact. No focal deficits identified. Psychiatric: Normal mood and affect. The patient awake, alert, oriented x3. ASSESSMENT AND PLAN: 1. Likely late stage colon cancer with metastasis to liver and lung. Patient with numerous masses in the liver and numerous tiny masses in the lungs. CEA elevated. Initial pathology from liver biopsy showing adenocarcinoma with extensive necrosis. Strongly suspect colon cancer. Patient is getting bowel prep today for colonoscopy tomorrow. We will see what oncology says but depending on their plan, she may need port placement after that with discharge home once she has colonoscopy and port if she needs one. 2. Acute on chronic constipation. Patient reports a chronic issue with constipation but some concern that there may be an underlying obstructing mass. We will see what her colonoscopy shows and go from there. Given her x-ray, a completely obstructing mass seems unlikely but in the event that is what is found, then she could end up needing surgery. 3. Tobacco abuse. Patient has been advised on cessation. [facility]
[2019-04-20] MEDS: LOVENOX SUBQ SCH (19:01)
[2019-04-20] MEDS: ATIVAN PO SCH (20:43)
[2019-04-20] MEDS: LEXAPRO PO SCH (20:43)
[2019-04-21] MEDS: MORPHINE IV PRN ×2 (02:51→05:33)
[2019-04-21] MEDS: ZOFRAN IV PRN ×2 (02:56→06:15)
[2019-04-21] MEDS: DEXTROAMPHETAMINE PO SCH ×2 (06:14→11:49)
[2019-04-21] MEDS: AMPHETAMINE PO SCH ×2 (06:14→11:49)
[2019-04-21 07:02] LABS: BASO# 0.02 X1000 (0.0-0.2); BASO% 0.2 % (0.0-0.8); EOS# 0.17 X1000 (0.0-0.7); EOS% 1.3 % (0.0-10.0); HEMATOCRIT 33.8 % (37.0-47.0); HEMOGLOBIN 10.9 g/dL (12.0-16.0); IMM GRAN# 0.04 X1000 (0.0-0.04); IMM GRAN% 0.3 % (0.0-0.5); LYMPH# 1.03 X1000 (1.2-3.4); MCH 27.2 PG (27-31); MCHC 32.2 g/dL (33-37); MCV 84.3 FL (81-99); MONO# 1.07 X1000 (0.11-0.59); MONO% 8.3 % (1.7-9.3); MPV 9.5 FL (7.4-10.4); NEUT# 10.49 X1000 (1.4-6.5); NEUT% 81.9 % (42.2-75.2); PLT 200 X1000 (130-400); RBC 4.01 XMIL (4.2-5.4); RDW 12.7 % (11.5-14.5); WBC 12.82 X1000 (4.8-10.8)
[2019-04-21 07:20] LABS: AGAP 13; BUN 10 mg/dL (8-22); CALCIUM 8.7 mg/dL (8.8-10.2); CHLORIDE 98 mmol/L (98-107); COSMO 275; CREATININE 0.6 mg/dL (0.5-0.9); ESTIMATED GFR > 60; GLUCOSE 100 mg/dL (70-104); POTASSIUM 3.8 mmol/L (3.5-5.1); SODIUM 138 mmol/L (136-145); TCO2 27 mmol/L (25-35)
[2019-04-21] MEDS ORDERED: DIPRIVAN 1% ONE (07:37)
[2019-04-21] MEDS ORDERED: FENTANYL ONE (07:37)
[2019-04-21] MEDS ORDERED: XYLOCAINE-MPF 2% ONE (07:38)
[2019-04-21] MEDS: MIRALAX PO SCH (07:59)
--- NOTE | 2019-04-21 08:48 | ENDOSCOPY OPERATIVE NOTE ---
[facility] ENDOSCOPY OPERATIVE NOTE , EGD PROCEDURE REPORT EXAM DATE: 04/21/2019 PATIENT NAME: Arielle Gonzales MR#: [id number] BIRTHDATE: 1965 ATTENDING: Jayden Moore MD STATUS: inpatient AUTOMATIC [employer]N GRINDER OPERATOR: Roro Sauceda INDICATIONS: The patient is a 53 yr old female here for an EGD due to Liver mass and Biopsy showed a denocarcinoma, Abdominal Pain. PROCEDURE PERFORMED: EGD, diagnostic MEDICATIONS: Per Anesthesia ESTIMATED BLOOD LOSS: None CONSENT: The patient understands the risks and benefits of the procedure and understands that these r isks include, but are not limited to: sedation, allergic reaction, infection, perforation and/or bleeding. Alternative means of evaluation and treatment include, among others: physical exam, x-rays, and/or surgical intervention. The patient elects to proceed with this endoscopic procedure. DESCRIPTION OF PROCEDURE: During pre-op preparation period all mechanical and medical equipment was c hecked for proper function. Hand hygiene and appropriate measures for infection prevention was taken. After the risks, benefits and alternatives of the procedure were thoroughly explained, Informed consent was verified, confirmed and timeout was successfully executed by the treatment team. The patient was anesthetized with topical anesthesia and the endoscope was introduced through the mouth and advanced to the second portion of the duodenum. Retroflexion wa s performed in the stomach and revealed no abnormalities. The gastroscope was then slowly withdrawn and removed. The p atient's toleration of the procedure was good. ESOPHAGUS: Z line was noted at 42 cms. The esophagus was otherwise normal. Small Hiatal hernia 1- 2 cms sliding type was noted. STOMACH: Gastritis (inflammation) was found in the gastric antrum and gastric body. DUODENUM: The duodenal mucosa showed no abnormalities in the duodenal bulb, 1st part duodenum, and 2n d part duodenum. ADVERSE EVENTS: There were no complications. IMPRESSIONS: 1. Z line was noted at 42 cms 2. The esophagus was otherwise normal 3. Small Hiatal hernia 1-2 cms sliding type was noted 4. Gastritis (inflammation) was found in the gastric antrum and gastric body 5. The duodenal mucosa showed no abnormalities in the duodenal bulb, 1st part duodenum, and 2nd part duodenum RECOMMENDATIONS: Start PPI once daily for 90 days Avoid NSAIDs Colonoscopy today GERD lifestyle changes REPEAT EXAM: Jayden Moore MD eSigned: Jayden Moore MD 04/21/2019 8:47 AM CC: CPT CODES: 66641 Upper gastrointestinal endoscopy including esophagus, stomach, and either the du odenum and/or jejunum as appropriate; diagnostic, with or without collection of specimen(s) by brushing or washing (separate procedure) ICD CODES: The ICD and CPT codes recommended by this software are interpretations from the data that the [facility] staff has captured with the software. The verification of the translation of this report to the ICD and CPT co asiya and modifiers is the sole responsibility of the health care institution and practicing physician where this report was generated. [employer] will not be held responsible for the validity of the ICD and CPT codes i ncluded on this report. A assumes no liability for data contained or not contained herein. CPT is a registered tra demark of the [employer]. PATIENT NAME: Arielle Gonzales MR#: [id number]
--- NOTE | 2019-04-21 08:51 | ENDOSCOPY OPERATIVE NOTE ---
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 PROCEDURE PERFORMED: Colonoscopy, diagnostic MEDICATIONS: Per Anesthesia PREP TYPE: GoLytely
[2019-04-21] MEDS ORDERED: SODIUM CHLORIDE 0.9% INJ SCH (09:15)
[2019-04-21] MEDS ORDERED: PROTONIX IV SCH (09:15)
[2019-04-21] MEDS: PERCOCET-10 PO PRN ×2 (09:56→14:40)
[2019-04-21 11:56] VITALS: BP 112/69
--- NOTE | 2019-04-21 12:19 | PROGRESS NOTE ---
DATE: 04/21/2019 SUBJECTIVE: Overall, Ms. Gonzales appears to be doing well given her current diagnosis. Yesterday she was under the care of the Gastroenterology Team here at [facility] and underwent an EGD, and today she underwent a colonoscopy. The EGD that was performed had no complications. With regard to the impressions of the procedure, the Z line was noted at 42 cm, the esophagus was otherwise normal, and there was a small hiatal hernia along with some gastritis that was noted. We still await the results of the colonoscopy. Thankfully, her symptoms of constipation have gotten better. This is most likely due to the prep that was done for both of the GI procedures yesterday and today. She endorses improvement in her symptoms of constipation and reports decreased abdominal fullness and bloating. She does, however, endorse right-sided abdominal tenderness; however, both she and myself believe that this is simply due to the recent colonoscopy that she had performed on her this morning. With regards to her more recent diagnosis of adenocarcinoma, we still await the results of the biopsy that was stained for immunohistochemistry so we can determine the etiology of the cancer, specifically, the primary source of the neoplasm. We fear that this is an advanced stage adenocarcinoma of the colon due to her increased level of CEA that was reported earlier in her stay here. REVIEW OF SYSTEMS: Pertinent positive symptoms reported were listed in the HPI. OBJECTIVE: Vital signs: Most recent vital signs include a temperature of 98.4 degrees Fahrenheit, pulse of 75 beats per minute, respiratory rate of 18 per minute, blood pressure of 118/66, and a pulse oximetry of 94%. Cardiovascular: Heart clear to murmurs, rubs and gallops. Present and prominent S1 and S2. Pulmonary: Lungs clear to auscultation. GI: Bowel sounds present in all 4 quadrants. Abdominal tenderness in both the right upper and right lower quadrants of the abdomen. Constitutional: The patient is awake and oriented x3. Cooperative with exam. ASSESSMENT AND PLAN: With regards to the patient's current prognosis, treatment plan will be determined once we find out the origin of the neoplasm that has metastasized throughout her body. Both the patient and her father who is present in the room are very eager to learn the origin of the neoplasm, as are we, so we can determine the best course of treatment for her. Thankfully, her constipation has gotten better, so we will continue her on her current treatment regimen of MiraLAX. With regards to the results of her EGD, we will follow up with GI and endorse their recommendations of avoiding NSAIDs and treatment with IV Protonix to reduce the gastritis. Hopefully, this will reduce her complaints of stomach pain. Thank you very much for allowing me to see this patient. Dictated by Miroslava Prasad, Medical Student for Amos Cordova MD This chart was documented by, Miroslava Prasad Medical Student and accurately reflects the services performed, treatment plan and medical decisions as attested by the providers signature Amos Cordova MD. cc: Amos Cordova MD [facility]
--- NOTE | 2019-04-21 14:11 | MAMMOGRAPHY RESULT DOCUMENT ---
TOMOSYNTHESIS SCREENING BILAT 04/21/2019 Liver mets. R/o breast ca COMPARISON: No prior study is available for comparison at the time of interpretation. As such, this will be treated as a baseline study. TECHNIQUE: Computer aided detection imaging was used. FINDINGS: There are scattered fibroglandular densities. Metallic skin leads at the upper inner quadrant of both breasts are in the [id number]. There are bilateral round coarse and lucent centered calcifications. No suspicious calcification, dominant mass, or area of architectural distortion is appreciated. IMPRESSION: Routine screening mammogram is recommended in 12 months. ACR BI-RADS CATEGORY 2: BENIGN FINDING NOTE: This facility is accredited by the [employer] for Mammography. A mammogram report should not delay biopsy if a dominant or clinically suspicious mass is present. Some cancers are not identified by mammography. Adenosis and dense breasts may obscure any underlying neoplasm Electronically signed by Roberth Hilton 04/21/2019 2:09 PM
--- NOTE | 2019-04-21 20:55 | DISCHARGE SUMMARY ---
ADMISSION DATE: 04/16/2019 DISCHARGE DATE: 04/21/2019 DISPOSITION: Home. FOLLOWUP: 1. Ms. Venus Boyle. 2. Dr. Ruiz. 3. Dr. Mckeon. CONSULTATION: 1. Heme-Onc was consulted patient was seen by Dr. Ruiz, GI was consulted patient was seen by Dr. Mckeon. INVASIVE PROCEDURES: Colonoscopy showed a medium size internal grade 2 hemorrhoids. No evidence of any mass or AVMs. An EGD was unremarkable except for a small hiatal hernia. ADMISSION DIAGNOSIS: 1. Likely metastatic adenocarcinoma in the liver. 2. Hypertension. 3. Weight loss. 4. Tobacco use. DIAGNOSIS AT THE TIME OF DISCHARGE: 1. Metastatic adenocarcinoma to the liver of unknown primary. Patient is still pending the immunochemical stains. EGD and colonoscopy did not show anything in the in the GI tract. 2. Chronic constipation. 3. Tobacco use and abuse patient has been counseled. 4. Chronic pain syndrome. 5. Hypertension. DISCHARGE MEDICATIONS: 1. Adderall 30 mg b.i.d. 2. Lisinopril 40 mg p.o. daily. 3. MiraLAX 17 g b.i.d. 4. Lexapro 20 mg p.o. at bedtime. 5. Percocet 10 mg p.o. q.4 p.r.n. PRESENTING COMPLAINT: Abdominal pain, blood pressure. HISTORY OF PRESENTING COMPLAINT: Ms Gonzales is a 53 years old female with no significant history except high blood pressure issues. According to Ms Gonzales she has been having some abdominal pain especially in the right upper quadrant and she has also lost quite significant amount of weight about 20 to 30 pounds. Upon presenting to the emergency room she was evaluated including a CT scan of the abdomen which revealed innumerable masses in her liver. She was therefore transferred from [facility] for higher level of care. HOSPITAL COURSE: Ms. Gonzales was admitted to the medical floor. Initial workup including a CT scan of the chest was not very conclusive. A CT scan of the head was unremarkable so a CT-guided liver biopsy was done which pathology came back positive for metastatic adenocarcinoma with extensive necrosis. Ms. Gonzales CEA was elevated so we thought initially that she could have the primary source in the colon. She underwent EGD and colonoscopy which did not identify any intraluminal mass. A mammogram was also done which was negative. Ms Gonzales was evaluated by Dr. Ruiz who determined that would just have on the immunostains to know where the primary could come from since there was no any other mass anywhere and that he will follow up with Ms. Gonzales at a later date and make all the arrangements once we know where the primary malignancy is then he will design a treatment algorithm. All the discharge instructions were discussed with Ms. Gonzales and the boyfriend who was at the bedside at the time of the encounter, they both voiced understanding. At the time of the discharge Ms. Gonzales was clinically stable. Physical exam was unremarkable. Her vitals, blood pressure was 113/69, pulse of 75, respiration is 18, temperature 98.9 degrees, patient was saturating 95% on room air TIME SPENT: 38 minutes. cc: Amos Cordova MD
== END 2019-04-21 15:49 | disposition home or self-care (01) | DRG 436 ==
LOC: P.ED 13:21 → 3N 21:05 → SUATTDRO 21:05
PROVIDERS: ATTEND Internal Medicine